=== PATIENT | female | born 1975 | race Caucasian/White ===

== ENCOUNTER → 2023-10-05 06:27 | Day surgery (SDC) | payer OTHER, SELFPAY | LOC: GI 06:27 | PROVIDERS: ATTENDING PHYSICIAN Internal Medicine | DX: K52.831 Collagenous colitis (principal) | CPT/HCPCS: 45380; 88305 ==

== ENCOUNTER → 2024-09-05 09:05 | Outpatient (REF) | payer BC, SELFPAY | LOC: HWWDC 09:05 | PROVIDERS: ATTENDING PHYSICIAN Nurse Practitioner Family | DX: Z12.31 Encounter for screening mammogram for malignant neoplasm of breast (principal) | CPT/HCPCS: 77063; 77067 ==